=== PATIENT | male | born 1935 | race Caucasian/White ===

== ENCOUNTER 2019-09-12 21:07 | Emergency (ER) | payer OTHER ==
[2019-09-12 21:47] VITALS: BP 128/80; PULSE 75; TEMP 98.7; BMI 24.0
--- NOTE | 2019-09-12 21:47 | PDOC ---
Documentation entered by Kerri Bonds SCRIBE, acting as scribe for Isis Nolan MD. Isis Nolan MD: This documentation has been prepared by the Cammie lopes Joy, SCRIBE, under my direction and personally reviewed by me in its entirety. I confirm that the documentation accurately reflects all work, treatment, procedures, and medical decision making performed by me. History of Present Illness - General Chief Complaint: Altered Mental Status Stated Complaint: WAS LOST History Source: Patient - History of Present Illness Initial Comments: 09/12/19 21:42 The patient is an 84 year old male with no significant past medical history who presents to the ED tonight after becoming confused in transit. As per EMS, the patient took the bus and became confused as to where he was so EMS was called and they brought him here. The patient stated that this is where he lives. The patients mental status is at baseline and he is well known to the staff here at the ED. The patient denies any other complaints/symtoms. PAST MEDICAL HISTORY: no significant history PAST SURGICAL HISTORY: no significant history FAMILY HISTORY: no pertinent history SOCIAL HISTORY: Pt lives with family. MEDICATIONS: reviewed ALLERGIES: As per nursing notes 09/12/19 21:46 Assessment and plan: This is an 84-year-old male who was at his baseline mental status. Patient is well-known to staff here. Patient is without complaints. Patient was confused which is his baseline took a bus out of the area and had to be brought back by EMS. Patient has a normal exam and will be discharged home. Past History - Past Medical History Allergies/Adverse Reactions: Allergies Allergy/AdvReac Type Severity Reaction Status Date / Time No Known Allergies Allergy Verified 09/12/19 21:09 Home Medications: Ambulatory Orders NK [No Known Home Medication] 09/12/19 Review of Systems - Review of Systems Able to Perform ROS?: Yes Comments:: 09/12/19 21:42 General: No fevers or chills, no weakness. HEENT: No change in vision. No sore throat. No ear pain. CardioVascular: No chest pain or shortness of breath Respiratory: No cough, or wheezing. Gastrointestinal: no nausea, vomiting, diarrhea or constipation. Musculoskeletal: No joint or muscle pain or swelling Neurologic: No headache, vertigo, dizziness or loss of consciousness Psychiatric: +Confusion at baseline All other systems reviewed and normal *Physical Exam - Vital Signs Last Vital Signs Temp Pulse Resp BP Pulse Ox 98.7 F 75 16 128/80 96 09/12/19 21:09 09/12/19 21:09 09/12/19 21:09 09/12/19 21:09 09/12/19 21:09 - Physical Exam 09/12/19 21:44 GENERAL: The patient is awake, alert, and fully oriented, in no acute distress. HEAD: Normal with no signs of trauma. EYES: Pupils equal, round and reactive to light, extraocular movements intact, sclera anicteric, conjunctiva clear. EXTREMITIES: Normal range of motion, no edema. NEUROLOGICAL: Normal speech, normal gait. PSYCH: Normal mood, normal affect. SKIN: Warm, Dry, normal turgor, no rashes or lesions noted. Discharge - Discharge Information Problems reviewed: Yes Clinical Impression/Diagnosis: Mental status at baseline Condition: Good Disposition: HOME - Admission No - Follow up/Referral - Patient Discharge Instructions Additional Instructions: Return to the emergency department immediately with ANY new, persistent or worsening symptoms. Continue any medications as previously prescribed by your physician. You should follow up with your primary doctor as soon as possible regarding today's emergency department visit. . Please make sure your doctor reviews the results of your emergency evaluation. Thank you for coming to the Emergency Department today for your care. It was a pleasure to see you today. Please note that your evaluation is INCOMPLETE until you follow-up with your doctor. - Post Discharge Activity
== END 2019-09-12 21:58 | disposition home or self-care (01) ==
LOC: FER 21:07
DX: R41.0 Disorientation, unspecified (principal)
CPT/HCPCS: 99281-25

== ENCOUNTER 2022-12-31 21:00 | Inpatient (IN) | payer OTHER ==
[2022-12-31 22:12] LABS: HEMATOCRIT 33.4 % (35.4-49); HEMOGLOBIN 11.3 G/dL (11.7-16.9); MCH 33.5 pg (25.7-33.7); MCHC 33.8 g/dl (32.0-35.9); MEAN PLT VOLUME 8.1 fl (7.5-11.1); PLATELET COUNT 161.5 10^3/uL (134-434); RBC 3.37 10^6/uL (4.00-5.60); RDW 15.4 % (11.9-15.9); WHITE BLOOD COUNT 6.3 10^3/uL (4.0-10.8)
[2022-12-31 22:28] LABS: CALCIUM 8.3 mg/dl (8.5-10); POTASSIUM 3.2 mmol/L (3.5-5.1)
[2022-12-31 22:32] LABS: ALBUMIN 2.9 g/dl (3.4-5.0); BILIRUBIN,TOTAL 1.1 mg/dl (0.2-1); CREATININE 1.4 mg/dl (0.55-1.3); TOT PROT 5.9 g/dl (6.4-8.2)
[2022-12-31] MEDS ORDERED: POTASSIUM CHLORIDE TABS 10 MEQ TABLET.ER (FP) PO ONE (22:44)
[2023-01-01] MEDS ORDERED: SODIUM CHLORIDE 500 ML IV STA (00:06)
[2023-01-01 00:12] LABS: N-TERMINAL BNP 6162.9 pg/ml (5-450)
[2023-01-01] MEDS ORDERED: POTASSIUM CHLORIDE ORAL LIQUID 20 MEQ/15 ML PO ONE ×2 (00:30→10:30)
[2023-01-01] MEDS ORDERED: POTASSIUM CHLORIDE ORAL LIQUID 20 MEQ/15 ML ONE (00:35)
[2023-01-01 01:39] LABS: EPI CELLS 36 /uL (0-25.1); HYALINE CASTS 6 /uL (0-3.1); PH,URINE 5.5 (5.0-8.0); URINE APPEARANCE CLOUDY; URINE BACTERIA 1 /uL (0-1359); URINE BILIRUBIN NEGATIVE (NEGATIVE); URINE COLOR DK YELLOW; URINE GLUCOSE (UA) NEGATIVE (NEGATIVE); URINE KETONE NEGATIVE (NEGATIVE); URINE LEUK ESTERASE NEGATIVE (NEGATIVE); URINE NITRITE NEGATIVE (NEGATIVE); URINE PROTEIN 2+ (NEGATIVE); URINE WBC 38 /uL (0-25.8)
[2023-01-01] MEDS ORDERED: AZITHROMYCIN IVPB 500 MG in DEXTROSE 5%-WATER - 250 ML IVPB ONE (01:48)
[2023-01-01] MEDS ORDERED: AZITHROMYCIN 500 MG VIAL IVPB ONE (02:03)
[2023-01-01] MEDS ORDERED: ALBUTEROL SO4 0.083% IH SOL 2.5 MG/3 ML VIAL.NEB. NEB PRN (02:19)
[2023-01-01] MEDS: ENOXAPARIN NA (PORCINE) 60 MG/0.6 ML DISP.SYRIN SQ SCH ×3 (04:03→21:10)
[2023-01-01] MEDS ORDERED: ALBUTEROL SO4 2.5/IPRATROPIUM 0.5 INH SOL 3 ML VIAL.NEB. NEB PRN (07:58)
[2023-01-01 08:04] LABS: HEMATOCRIT 31.7 % (35.4-49); HEMOGLOBIN 10.7 G/dL (11.7-16.9); MCH 33.2 pg (25.7-33.7); MCHC 33.6 g/dl (32.0-35.9); MEAN CELL VOLUME 98.6 fl (80-96); MEAN PLT VOLUME 8.6 fl (7.5-11.1); PLATELET COUNT 159.7 10^3/uL (134-434); RBC 3.21 10^6/uL (4.00-5.60); RDW 14.4 % (11.9-15.9); WHITE BLOOD COUNT 5.5 10^3/uL (4.0-10.8)
[2023-01-01 08:14] LABS: CALCIUM 7.9 mg/dl (8.5-10); CREATININE 1.2 mg/dl (0.55-1.3); MAGNESIUM 1.8 mg/dL (1.8-2.4); PHOSPHOROUS 2.6 mg/dl (2.5-4.9); POTASSIUM 3.1 mmol/L (3.5-5.1)
[2023-01-01] MEDS: ASPIRIN COATED 81 MG TABLET.EC PO SCH (10:30)
[2023-01-01] MEDS: SERTRALINE HCL 50 MG TABLET (FP) PO SCH (10:30)
[2023-01-01 15:28] VITALS: BMI 21.9
[2023-01-01] MEDS: methylPREDNISolone NA SUCC 40 MG/1 ML VIAL IVPUSH SCH ×2 (15:50→23:35)
[2023-01-01] MEDS: ALBUTEROL SO4 2.5/IPRATROPIUM 0.5 INH SOL 3 ML VIAL.NEB. NEB SCH ×2 (16:17→21:10)
[2023-01-01] MEDS: ATORVASTATIN CA 40 MG TABLET (FP) PO SCH (21:09)
[2023-01-01] MEDS: DOXYCYCLINE INJECTION 100 MG in DEXTROSE 5%-WATER 100 ML IVPB SCH (21:10)
[2023-01-02] MEDS: ALBUTEROL SO4 2.5/IPRATROPIUM 0.5 INH SOL 3 ML VIAL.NEB. NEB SCH ×6 (04:46→21:23)
[2023-01-02] MEDS: methylPREDNISolone NA SUCC 40 MG/1 ML VIAL IVPUSH SCH ×3 (06:29→23:01)
[2023-01-02 08:28] LABS: INR 1.16 (0.83-1.09); PROTHROMBIN TIME (PATIENT) 13.4 SEC (9.7-13.0)
[2023-01-02 08:30] LABS: ACTIVATED PTT 30.7 SECONDS (25.2-36.5)
[2023-01-02] MEDS: DOXYCYCLINE INJECTION 100 MG in DEXTROSE 5%-WATER 100 ML IVPB SCH (10:21)
[2023-01-02] MEDS: ASPIRIN COATED 81 MG TABLET.EC PO SCH (10:22)
[2023-01-02] MEDS: SERTRALINE HCL 50 MG TABLET (FP) PO SCH (10:22)
[2023-01-02] MEDS: ENOXAPARIN NA (PORCINE) 60 MG/0.6 ML DISP.SYRIN SQ SCH ×2 (10:23→21:21)
[2023-01-02] MEDS ORDERED: POTASSIUM CHLORIDE ORAL LIQUID 20 MEQ/15 ML PO ONE (12:45)
[2023-01-02] MEDS: ATORVASTATIN CA 40 MG TABLET (FP) PO SCH (21:21)
[2023-01-03] MEDS: ALBUTEROL SO4 2.5/IPRATROPIUM 0.5 INH SOL 3 ML VIAL.NEB. NEB SCH ×5 (03:19→19:30)
[2023-01-03 08:25] LABS: CALCIUM 8.6 mg/dl (8.5-10); CREATININE 1.1 mg/dl (0.55-1.3); PHOSPHOROUS 3.2 mg/dl (2.5-4.9); POTASSIUM 3.8 mmol/L (3.5-5.1)
[2023-01-03 09:22] LABS: BASO % 0.1 % (0-2.0); HEMATOCRIT 29.4 % (35.4-49); HEMOGLOBIN 10.2 GM/dL (11.7-16.9); MCH 32.3 pg (25.7-33.7); MCHC 34.6 g/dl (32.0-35.9); MEAN CELL VOLUME 93.4 fl (80-96); MEAN PLT VOLUME 8.4 fl (7.5-11.1); MONO % 6.3 % (3.8-10.2); NEUT % 87.6 % (42.8-82.8); PLATELET COUNT 199 10^3/uL (134-434); RBC 3.15 M/mm3 (4.00-5.60); RDW 14.7 % (11.9-15.9); WHITE BLOOD COUNT 5.9 K/mm3 (4.0-10.0)
[2023-01-03] MEDS: ASPIRIN COATED 81 MG TABLET.EC PO SCH (10:06)
[2023-01-03] MEDS: SERTRALINE HCL 50 MG TABLET (FP) PO SCH (10:06)
[2023-01-03] MEDS: predniSONE 20 MG TABLET (UD) PO SCH (10:07)
[2023-01-03] MEDS: ENOXAPARIN NA (PORCINE) 60 MG/0.6 ML DISP.SYRIN SQ SCH ×2 (10:08→21:13)
[2023-01-03] MEDS: ATORVASTATIN CA 40 MG TABLET (FP) PO SCH (21:13)
[2023-01-04] MEDS: ALBUTEROL SO4 2.5/IPRATROPIUM 0.5 INH SOL 3 ML VIAL.NEB. NEB SCH ×5 (04:45→14:29)
[2023-01-04 09:10] VITALS: PULSE 53; TEMP 97.7
[2023-01-04] MEDS: ASPIRIN COATED 81 MG TABLET.EC PO SCH (09:37)
[2023-01-04] MEDS: predniSONE 20 MG TABLET (UD) PO SCH (09:37)
[2023-01-04] MEDS: ENOXAPARIN NA (PORCINE) 60 MG/0.6 ML DISP.SYRIN SQ SCH (09:37)
[2023-01-04] MEDS: SERTRALINE HCL 50 MG TABLET (FP) PO SCH (09:37)
[2023-01-04 14:15] VITALS: BP 116/73; RESP 18
== END 2023-01-04 16:10 | disposition home or self-care (01) | DRG 152 ==
LOC: FER 21:00 → FM/S 01-01 02:34
PROVIDERS: ADMIT Internal Medicine; ATTEND Internal Medicine
DX: J06.9 Acute upper respiratory infection, unspecified (principal); J18.9 Pneumonia, unspecified organism; G30.9 Alzheimer's disease, unspecified; F02.80 Dementia in other diseases classified elsewhere, unspecified severity, without behavioral disturbance, psychotic disturbance, mood disturbance, and anxiety; I25.10 Atherosclerotic heart disease of native coronary artery without angina pectoris; E78.5 Hyperlipidemia, unspecified; E86.0 Dehydration; R31.9 Hematuria, unspecified; R80.8 Other proteinuria; E87.6 Hypokalemia; R13.19 Other dysphagia; Z86.718 Personal history of other venous thrombosis and embolism
CPT/HCPCS: 0241U-QW; 36415; 71045-TC-FY; 80048; 80053; 81003; 83735; 83880; 84100; 84484; 85025; 85027; 85610; 85730; 87086; 93005; 93306-TC; 94640; 97116-GP; 97161-GP; 99285-25